=== PATIENT | female | born 1995 | race Hispanic/Latino ===

== ENCOUNTER 2019-08-04 23:32 | Emergency (ER) | payer MEDICAID, OTHER ==
[~2019-08-04 23:32] MED LIST: FERR-82 PO; PREN1TAB89 PO
[2019-08-05 00:44] LABS: APPEARANCE,URINE Clear (CLEAR); BILIRUBIN,URINE Negative (NEGATIVE); COLOR,URINE Yellow (YELLOW); GLUCOSE, URINE (UA) Negative (NEGATIVE); KETONES,URINE Trace mg/dL (NEGATIVE); LEUKOCYTE ESTERASE ,URINE Moderate (NEGATIVE); NITRATE,URINE Negative (NEGATIVE); OCCULT BLOOD,URINE Nonhemolyzed Trace (NEGATIVE); PROTEIN,URINE Negative (NEGATIVE)
[2019-08-05 00:58] LABS: BACTERIA,URINE Rare /HPF (None Seen); RBC,URINE 0-1 /HPF (0-1); SQUAMOUS EPITHELIAL CELL,UR None Seen /HPF (0-2)
[2019-08-05 01:01] LABS: HCG,QUAL RESULT NEGATIVE (NEGATIVE)
[2019-08-05] MEDS ORDERED: CEPHALEXIN 500 MG CAPSULE ONE (01:26)
== END 2019-08-05 03:22 | disposition home or self-care (01) ==
LOC: EDH 23:32
DX: N39.0 Urinary tract infection, site not specified (principal)
CPT/HCPCS: 81001; 81025

== ENCOUNTER 2021-05-14 15:54 | Observation (INO) | payer MEDICAID ==
[~2021-05-14] VITALS: Ht 154.9 cm; Wt 63.5 kg
[2021-05-14 15:55] VITALS: BP 116/67
[2021-05-14 17:22] LABS: APPEARANCE,URINE Clear (CLEAR); BILIRUBIN,URINE Negative (NEGATIVE); COLOR,URINE Yellow (YELLOW); GLUCOSE, URINE (UA) Negative (NEGATIVE); KETONES,URINE 15 mg/dL (NEGATIVE); LEUKOCYTE ESTERASE ,URINE Trace (NEGATIVE); NITRATE,URINE Negative (NEGATIVE); OCCULT BLOOD,URINE Negative (NEGATIVE); PROTEIN,URINE Negative (NEGATIVE)
[2021-05-14 17:43] LABS: BACTERIA,URINE Few /HPF (None Seen); RBC,URINE None Seen /HPF (0-1); WBC,URINE 0-1 /HPF (0-1)
== END 2021-05-14 17:40 | disposition home or self-care (01) ==
LOC: EDH 15:54 → LDH 15:55
PROVIDERS: ADMIT Internal Medicine; ATTEND Internal Medicine
DX: O26.893 Other specified pregnancy related conditions, third trimester (principal); R10.13 Epigastric pain; R10.9 Unspecified abdominal pain; Z3A.25 25 weeks gestation of pregnancy
CPT/HCPCS: 81001; G0378 ×2; G0379

== ENCOUNTER 2021-07-26 09:39 | Observation (INO) | payer MEDICAID ==
[~2021-07-26] VITALS: Ht 154.9 cm; Wt 70.3 kg
[2021-07-26 09:43] VITALS: BP 122/49
[2021-07-26 10:24] LABS: APPEARANCE,URINE Clear (CLEAR); BILIRUBIN,URINE Negative (NEGATIVE); COLOR,URINE Yellow (YELLOW); GLUCOSE, URINE (UA) Negative (NEGATIVE); KETONES,URINE Negative (NEGATIVE); LEUKOCYTE ESTERASE ,URINE Moderate (NEGATIVE); NITRATE,URINE Negative (NEGATIVE); OCCULT BLOOD,URINE Negative (NEGATIVE); PH,URINE 6.5 (5.0-8.0); PROTEIN,URINE Negative (NEGATIVE)
[2021-07-26 10:49] LABS: BACTERIA,URINE Moderate /HPF (None Seen)
[2021-07-26 10:50] LABS: RBC,URINE 0-1 /HPF (0-1)
== END 2021-07-26 11:15 | disposition home or self-care (01) ==
LOC: EDH 09:39 → LDH 09:40
PROVIDERS: ADMIT Internal Medicine; ATTEND Internal Medicine
DX: O36.8130 Decreased fetal movements, third trimester, not applicable or unspecified (principal); O26.893 Other specified pregnancy related conditions, third trimester; R10.9 Unspecified abdominal pain; Z3A.37 37 weeks gestation of pregnancy
CPT/HCPCS: 59025; 81001; 87088; G0378; G0379

== ENCOUNTER 2021-07-29 18:46 | Observation (INO) | payer MEDICAID ==
[~2021-07-29] VITALS: Ht 154.9 cm; Wt 70.8 kg
[2021-07-29 18:47] VITALS: BP 112/69
[2021-07-29 19:45] LABS: APPEARANCE,URINE CLEAR (CLEAR); BILIRUBIN,URINE NEGATIVE (NEGATIVE); COLOR,URINE YELLOW (YELLOW); GLUCOSE, URINE (UA) NEGATIVE (NEGATIVE); KETONES,URINE NEGATIVE (NEGATIVE); LEUKOCYTE ESTERASE ,URINE NEGATIVE (NEGATIVE); NITRATE,URINE NEGATIVE (NEGATIVE); OCCULT BLOOD,URINE NEGATIVE (NEGATIVE); PH,URINE 6.5 (5.0-8.0); PROTEIN,URINE NEGATIVE (NEGATIVE); UROBILINOGEN,URINE 0.2 mg/dL (0.2-1.0)
== END 2021-07-29 20:25 | disposition home or self-care (01) ==
LOC: EDH 18:46 → LDH 18:57
PROVIDERS: ADMIT Internal Medicine; ATTEND Internal Medicine
DX: O46.93 Antepartum hemorrhage, unspecified, third trimester (principal); O26.893 Other specified pregnancy related conditions, third trimester; R10.2 Pelvic and perineal pain; R10.30 Lower abdominal pain, unspecified; Z3A.36 36 weeks gestation of pregnancy
CPT/HCPCS: 81003; G0378; G0379